=== PATIENT | female | born 1990 | race Caucasian/White ===

== ENCOUNTER 2023-11-26 09:43 | Outpatient (CLI) | payer BC ==
--- NOTE | 2023-11-27 13:08 | Ultrasound Report ---
PROCEDURE: OB 1st Trimester w/TV INDICATIONS: POSITIVE TEST OUTSIDE/PRIOR DATING DATA: Last menstrual period (LMP): 09/29/2023. LMP-based estimated date of delivery (KAYLEEN): 07/05/2024. First dating scan (date and location): 11/26/2023. Estimated date of delivery (KAYLEEN) from first dating scan: 07/07/2024. TECHNIQUE: Real-time scanning was performed of the fetus and maternal pelvic organs, with image documentation. Endovaginal scanning was also performed to better visualize the fetus and maternal ovaries. COMPARISON: None. FINDINGS: Intrauterine gestational sac present. Embryo: 1.56 cm, 8 weeks, 3 days Heart rate: 157 bpm. Other: No perigestational fluid collection. Measurement variability in dating: +/- 4 weeks by LMP, +/- 7 days by mean sac diameter (use before 6 weeks gestation if crown-rump length not able to be measured), +/- 5 days by crown-rump length (6-12 weeks gestation). Maternal organs: Ovaries appear within normal limits. IMPRESSION: Single live intrauterine gestation with a gestational age of 8 weeks, 3 days by crown-rump length. Reviewed by: Evangelina Israel MD on 11/27/2023 1:07 PM PST Approved by: Evangelina Israel MD on 11/27/2023 1:07 PM PST Station ID: [id number]
== END 2023-11-26 09:44 | disposition home or self-care (01) ==
LOC: DI 09:43
PROVIDERS: ATTEND Obstetrics & Gynecology
DX: Z34.91 Encounter for supervision of normal pregnancy, unspecified, first trimester (principal)

== ENCOUNTER 2023-12-05 08:00 | Outpatient (CLI) | payer BC ==
[2023-12-05 22:43] LABS: CHLAMYDIA TRACHOMATIS DNA NEGATIVE (NEGATIVE); NEISSERIA GONORRHOEAE DNA NEGATIVE (NEGATIVE); TRICHOMONAS VAGINALIS DNA NEGATIVE (NEGATIVE)
== END 2023-12-05 23:59 | disposition home or self-care (01) ==
LOC: LAB.WC 08:00
PROVIDERS: ATTEND Obstetrics & Gynecology
DX: Z11.3 Encounter for screening for infections with a predominantly sexual mode of transmission (principal)
CPT/HCPCS: 87491; 87591; 87661

== ENCOUNTER 2023-12-12 11:48 | Outpatient (CLI) | payer BC ==
[2023-12-12 12:14] LABS: BASOPHILS % (AUTO) 0.4 %; EOSINOPHILS % (AUTO) 0.5 %; HCT - HEMATOCRIT 32.6 % (37.0-47.0); HGB - HEMOGLOBIN 11.4 g/dL (12.0-16.0); LYMPHOCYTES # (AUTO) 1.4 10^3/uL (1.5-3.5); LYMPHOCYTES % (AUTO) 16.5 %; MEAN CORPUSCULAR HEMOGLOBIN 31.2 pg (27.0-31.0); MEAN CORPUSCULAR VOLUME 89.3 fL (81.0-99.0); MEAN PLATELET VOLUME 10.5 fL (7.9-10.8); MONOCYTES # (AUTO) 0.4 10^3/uL (0.0-1.0); MONOCYTES % (AUTO) 5.1 %; NEUTROPHILS # (AUTO) 6.3 10^3/uL (1.5-6.6); NEUTROPHILS % (AUTO) 77.3 %; PLT - PLATELET COUNT 211 10^3/uL (130-450); RED BLOOD COUNT 3.65 10^6/uL (4.20-5.40); RED CELL DISTRIBUTION WIDTH 12.2 % (12.0-15.0); WHITE BLOOD COUNT 8.2 x10^3/uL (4.8-10.8)
[2023-12-12 12:16] LABS: BILIRUBIN,URINE NEGATIVE (NEGATIVE); GLUCOSE, URINE (UA) NEGATIVE (NEGATIVE); KETONES,URINE (UA) NEGATIVE (NEGATIVE); LEUKOCYTE ESTERASE, URINE NEGATIVE (NEGATIVE); NITRITE,URINE NEGATIVE (NEGATIVE); OCCULT BLOOD,URINE NEGATIVE (NEGATIVE); PROTEIN,URINE NEGATIVE (NEGATIVE); UROBILINOGEN,URINE 0.2 (NORMAL) E.U./dL (NORMAL)
[2023-12-12 12:23] LABS: CLARITY,URINE CLEAR (CLEAR)
[2023-12-13 02:08] LABS: HIV SCREEN 4TH GENERATION Non Reactive (Non Reactive)
[2023-12-13 03:11] LABS: HCV AB Non Reactive (Non Reactive)
[2023-12-13 04:09] LABS: HBsAG SCREEN Negative (Negative)
[2023-12-13 06:10] LABS: RPR Non Reactive (Non Reactive)
[2023-12-13 09:10] LABS: VARICELLA-ZOSTER AB IGG 2259 index (Immune >165)
== END 2023-12-12 11:49 | disposition home or self-care (01) ==
LOC: LAB 11:48
PROVIDERS: ATTEND Obstetrics & Gynecology
DX: Z34.90 Encounter for supervision of normal pregnancy, unspecified, unspecified trimester (principal); Z36.89 Encounter for other specified antenatal screening
CPT/HCPCS: 36415; 81003; 85025; 86592; 86762; 86787; 86803; 86850; 86900; 86901; 87086; 87340; 87389

== ENCOUNTER 2024-02-23 08:08 | Outpatient (CLI) | payer BC ==
--- NOTE | 2024-02-23 11:47 | Ultrasound Report ---
PROCEDURE: OB Anatomy Scan INDICATIONS: SUPERVISION OF OUTSIDE/PRIOR DATING DATA: Last menstrual period (LMP): 09/29/2023. LMP-based estimated date of delivery (KAYLEEN): 07/05/2024. First dating scan (date and location): 11/26/2023. Estimated date of delivery (KAYLEEN) from first dating scan: 07/07/2022. The below data below was generated using the clinical KAYLEEN of 07/05/2024 TECHNIQUE: Real-time scanning was performed of the fetus, with image documentation and biometric measurements. Endovaginal scanning: Not performed. COMPARISON: 11/26/2023. FINDINGS: General: A single living intrauterine gestation is present. Presentation: Breech Placenta: Placental position is posterior. Inferior placenta measures 1.4 cm from the cervical os. Amniotic fluid index: 11.5 cm, within normal limits for gestational age. heart rate: 138 beats per minute. Maternal cervical canal: 4.1 cm long; normal length is 2.5 cm or more. biometrics: Biparietal diameter: 4.9 cm, 20 weeks 6 days, 40 percentile Head circumference: 17.7 cm, 20 weeks 1 day, 11 percentile Abdominal circumference: 15.7 cm, 20 weeks 6 days, 38 percentile Femur length: 3.4 cm, 20 weeks 6 days, 33 percentile Estimated gestational age from initial scan: 21 weeks 0 days Composite gestational age from present scan: 20 weeks 5 days Estimated weight and percentile: 376 g, 32nd percentile Measurement variability in biometric dating: +/- 10 days from 12-20 weeks gestation, +/- 2 weeks from 20-30 weeks gestation, +/- 3 weeks at 30 weeks gestation or later. Anatomic survey: Neuro: Ventricles are normal at less than 10 mm. Cisterna magna is normal at 3-11 mm. Cerebellum i s normal in size and morphology. Nuchal skin fold: Normal at less than 6 mm between 14 and 20 weeks gestational age. Face: Nose and lips, facial profile are normal. Spine: No evidence for spina bifida. Heart: 4-chambered heart is present, with normal ventricular outflow tracts. Diaphragm: Diaphragm is intact. Stomach: Left-sided stomach is present. Kidneys: No hydronephrosis. Normal is less than 5 mm in 2nd trimester, less than 7 mm in 3rd trimester. Cord: 3 vessel cord has orthotopic insertion. Bladder: Normal in size. Extremities: All 4 extremities are visualized. IMPRESSION: Single living intrauterine at 21 weeks 0 days, KAYLEEN of 07/05/2024. Low-lying placenta, 1.4 cm from the cervical os. Otherwise, normal anatomy survey. Estimated weight of 376 g, 32nd percentile. Reviewed by: Rusty Hbuer MD on 02/23/2024 11:46 AM PDT Approved by: Rusty Huber MD on 02/23/2024 11:46 AM PDT Station ID: [id number]
== END 2024-02-23 08:09 | disposition home or self-care (01) ==
LOC: DI 08:08
PROVIDERS: ATTEND Obstetrics & Gynecology
DX: O44.42 Low lying placenta NOS or without hemorrhage, second trimester (principal); Z3A.21 21 weeks gestation of pregnancy

== ENCOUNTER 2024-04-05 11:58 | Outpatient (CLI) | payer BC ==
[2024-04-05 13:13] LABS: HCT - HEMATOCRIT 34.4 % (37.0-47.0); HGB - HEMOGLOBIN 11.5 g/dL (12.0-16.0); MEAN CORPUSCULAR HEMOGLOBIN 30.8 pg (27.0-31.0); MEAN CORPUSCULAR HGB CONC 33.4 g/dL (32.0-36.0); MEAN CORPUSCULAR VOLUME 92.2 fL (81.0-99.0); MEAN PLATELET VOLUME 10.3 fL (7.9-10.8); RED BLOOD COUNT 3.73 10^6/uL (4.20-5.40); RED CELL DISTRIBUTION WIDTH 12.4 % (12.0-15.0); WHITE BLOOD COUNT 9.7 x10^3/uL (4.8-10.8)
== END 2024-04-05 11:59 | disposition home or self-care (01) ==
LOC: LAB 11:58
PROVIDERS: ATTEND Nurse Practitioner
DX: Z34.90 Encounter for supervision of normal pregnancy, unspecified, unspecified trimester (principal)
CPT/HCPCS: 36415; 82950; 85027

== ENCOUNTER 2024-05-12 13:49 | Outpatient (CLI) | payer BC ==
--- NOTE | 2024-05-13 07:03 | Ultrasound Report ---
PROCEDURE: OB Follow up INDICATIONS: LOW LYING PLACENTA OUTSIDE/PRIOR DATING DATA: Last menstrual period (LMP): 09/29/2023. The below data below was generated using the clinical KAYLEEN of 07/05/2024 TECHNIQUE: Real-time scanning was performed of the fetus, with image documentation and biometric measurements. Endovaginal scanning: Not performed. COMPARISON: 02/23/2024 FINDINGS: General: A single living intrauterine gestation is present. Presentation: Vertex Placenta: Placental position is posterior, low-lying placenta. Limited imaging of this region. Amniotic fluid index: 11.5 cm, within normal limits for gestational age. heart rate: 132 beats per minute. Maternal cervical canal: 3.9 cm long; normal length is 2.5 cm or more. biometrics: Biparietal diameter: 8.38 cm, 33 weeks 5 days, 82 percentile Head circumference: 28.4 cm, 31 weeks 2 days, 3.3 percentile Abdominal circumference: 26.41 cm, 30 weeks 4 days, 8 percentile Femur length: 5.97 cm, 31 weeks 1 day, 11.2 percentile Estimated gestational age from initial scan: 31 weeks 5 days Composite gestational age from present scan: 32 weeks 5 days Estimated weight and percentile: 1686 g, 10th percentile Measurement variability in biometric dating: +/- 10 days from 12-20 weeks gestation, +/- 2 weeks from 20-30 weeks gestation, +/- 3 weeks at 30 weeks gestation or more. Other: Not applicable. IMPRESSION: Single living intrauterine at 32 weeks 5 days, KAYLEEN of 07/05/2024. Suboptimal imaging due to positioning. Head circumference is at the 3rd percentile, but could b e artifactual for the stated reasons. Abdominal circumference also measures low, at 8th percentile. Low-lying placenta is persistent but suboptimally visualized due to positioning. Reviewed by: uRsty Huber MD on 05/13/2024 7:02 AM PDT Approved by: Rusty Huber MD on 05/13/2024 7:02 AM PDT Station ID: [id number]
== END 2024-05-12 13:50 | disposition home or self-care (01) ==
LOC: DI 13:49
PROVIDERS: ATTEND Obstetrics & Gynecology
DX: O44.43 Low lying placenta NOS or without hemorrhage, third trimester (principal); O26.843 Uterine size-date discrepancy, third trimester; Z3A.32 32 weeks gestation of pregnancy

== ENCOUNTER 2024-06-07 08:00 | Outpatient (CLI) | payer BC | END 2024-06-07 23:59 | disposition home or self-care (01) | LOC: LAB.WC 08:00 | PROVIDERS: ATTEND Obstetrics & Gynecology | DX: Z34.90 Encounter for supervision of normal pregnancy, unspecified, unspecified trimester (principal) | CPT/HCPCS: 87797 ==

== ENCOUNTER 2024-06-28 21:47 | Inpatient (IN) | payer BC ==
[2024-06-28] MEDS ORDERED: NIFEdipine 10 MG CAPSULE PO PRN (21:55)
[2024-06-28] MEDS ORDERED: ACETAMINOPHEN 500 MG TABLET PO PRN (21:55)
[2024-06-28] MEDS ORDERED: TERBUTALINE 1 MG/ML VIAL SUBQ PRN (21:55)
[2024-06-28] MEDS ORDERED: OXYTOCIN 10 UNIT/ML VIAL IM PRN (21:55)
[2024-06-28] MEDS ORDERED: ONDANSETRON ODT 4 MG TABLET TL PRN (21:55)
[2024-06-28] MEDS ORDERED: METHYLERGONOVINE 0.2 MG/ML VIAL IM PRN (21:55)
[2024-06-28] MEDS ORDERED: hydrALAZINE INJ 20 MG/ML VIAL IVP PRN ×2 (21:55)
[2024-06-28] MEDS ORDERED: OXYTOCIN/SODIUM CHLORIDE 500 ML IV PRN (21:55)
[2024-06-28] MEDS ORDERED: lidocaine 1% 20 ML MDV ID PRN (21:55)
[2024-06-28] MEDS ORDERED: fentaNYL 100 MCG/2 ML VIAL IVP PRN (21:55)
[2024-06-28] MEDS ORDERED: SODIUM CHLORIDE FLUSH 0.9% 10 ML SYRINGE IVP PRN (21:55)
[2024-06-28] MEDS ORDERED: miSOPROStoL 200 MCG TABLET BC PRN (21:55)
[2024-06-28] MEDS ORDERED: LABETALOL 20 MG/4 ML SYRINGE IVP PRN ×3 (21:55)
[2024-06-28] MEDS ORDERED: LACTATED RINGERS 1,000 ML IV PRN (21:55)
[2024-06-28] MEDS ORDERED: miSOPROStoL 200 MCG TABLET PR PRN (21:55)
[2024-06-28] MEDS ORDERED: CALCIUM CARBONATE CHEW 500 MG TABLET PO PRN (21:55)
[2024-06-28] MEDS ORDERED: TRANEXAMIC ACID IN NACL 1,000 MG/100 ML BAG IV PRN (21:55)
--- NOTE | 2024-06-28 21:55 | HISTORY & PHYSICAL EXAMINATION ---
Admit History - Visit Reason Visit Reason: Contractions - : 1 Smoking Status: Never smoker - Mother's Labs Mother's Blood Type: positive: B Mother's RH: positive: Positive GBS: positive: Group B Step Negative Rubella Status: positive: Immune - Other Maternal History Other Maternal History: HPI: Patient is a 33-year-old G1, P0 at 39 weeks 0 days gestation by LMP consistent with 8-week ultrasound who presented today for contractions. She has been etienne all day and they have picked up in intensity this evening. She has good movement. Denies loss of fluid. No HENRY/BV or RUQP. No vaginal bleeding. Denies nausea and vomiting. Denies urinary urgency or dysuria. All other symptoms reviewed and were negative except per HPI. Course LMP: 09/29/2023 KAYLEEN by LMP: 07/05/2024 Initial US Date 11/26/2023, US Age 8 weeks 3 days gestation, KAYLEEN by ultrasound: 07/07/2024 Final KAYLEEN: 07/05/2024 by LMP consistent with 8-week ultrasound Problems: HSV: Recurrent outbreaks, has found that valacyclovir works best. On prophylaxis since 36 weeks. No lesions. GERD: Frequent TUMS use. Tried famotidine. Changed to Omeprazole. Pre- Weight: 127 BMI: 19.67 Blood type: B+ Antibody Screen: negative CBC: PLT 211 HCT 32.6 HGB 11.4 RUB: immune VZV: immune HBsAg: negative HepC: N-R RPR/AB-EIA: N-R HIV: N-R Flu: rcvd Covid: rcvd PAP: 05/09/23 normal GC/CT: negative HSV: affirmative, current outbreak being treated Genetic testing: NIPT normal (considered Ashkenazi Sikh carrier screen, but she believes both her parents were screened negative) FAS: WNL but will repeat 3rd trimester for placental location Placenta: posterior; inferior measures 1.4 cm from cervical os Cord: 3VC GIBSON: 11.5 cm EFW: 376g; 32%ile 50gm OGCT: 96 TDAP: 04/26 Breast Pump: 04/26 RPR: declined today 3rd trimester CBC: PLT 217; HGB 11.5; HCT 34.4 GBS: Negative Delivery plan:, 39-week induction, or sooner if IUGR. Contraception: Mirena PMH HSV PSH None OB History SH Denies tobacco,, drugs. 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 . Family History Mother: Osteoporosis, hearing loss Allergies No known drug allergies Medications Valacyclovir 500 mg twice daily Omeprazole 20 mg daily vitamins Tums Physical exam: General: Alert, oriented, no acute distress Head: Normal cephalic atraumatic Eyes: PERRLA, extraocular motions intact. Respiratory: Normal rate of respiration. No accessory muscle use, normal respiratory effort. Cardiovascular: Regular rate and rhythm Abdomen: Gravid, nontender, nondistended Extremities: Normal range of motion Neuro: Oriented x3. Normal movements Psych: Appropriate mood and affect. Normal judgment and insight SVE: 4/90/-2 FHT: 135 bpm baseline, moderate variability, accelerations present, no decelerations. Category 1. Taylors: Difficult to trace, but approximately 6-8 minutes Plan 33-year-old at 39 weeks gestation presenting for term labor 1. Term labor -Admit to L&D, epidural at patient's request, labs, anticipate AROM, anticipate 2. 39 weeks gestation 3. vulvovaginal HSV -Continue valacyclovir -No lesions or prodromal symptoms. - HPI Current EDU 07/05/24 Gestation 39 Weeks and 0 Days 1 Vital Signs Temperature 99.3 F 06/28/24 22:05 Heart Rate 69 06/28/24 22:05 Respiratory Rate 16 06/28/24 22:05 Blood Pressure 140/88 H 06/28/24 22:05 Temperature 99.3 F 06/28/24 22:05 Heart Rate 69 06/28/24 22:05 Respiratory Rate 16 06/28/24 22:05 Blood Pressure 140/88 H 06/28/24 22:05 O2 Saturation If not protocol: Oxygen Flow, liters/minute Meds/Allgy - Home Medications Home Medications: Ambulatory Orders Medication Instructions Recorded Confirmed Omeprazole [PriLOSEC] 20 mg PO DAILY 06/28/24 06/28/24 valACYclovir [Valtrex] 1 tab PO BID 06/28/24 06/28/24 Physical - Abdominal Exam Vital Signs: Temp Pulse Resp BP Pulse Ox O2 Flow Rate 99.3 F 69 16 140/88 H 06/28/24 22:05 06/28/24 22:05 06/28/24 22:05 06/28/24 22:05 Plan for Labor - Plan For Labor I expect patient to be DC'd or transferred within 96 hours.: Yes
[2024-06-28] MEDS ORDERED: LACTATED RINGERS 1,000 ML IV SCH (22:00)
[2024-06-28] MEDS ORDERED: SODIUM CHLORIDE FLUSH 0.9% 10 ML SYRINGE IVP SCH (22:00)
[2024-06-28 22:47] LABS: BASOPHILS # (AUTO) 0.1 10^3/uL (0.0-0.1); BASOPHILS % (AUTO) 0.3 %; EOSINOPHILS # (AUTO) 0.1 10^3/uL (0.0-0.7); EOSINOPHILS % (AUTO) 0.3 %; HCT - HEMATOCRIT 34.2 % (37.0-47.0); HGB - HEMOGLOBIN 11.7 g/dL (12.0-16.0); LYMPHOCYTES # (AUTO) 1.6 10^3/uL (1.5-3.5); LYMPHOCYTES % (AUTO) 10.3 %; MEAN CORPUSCULAR HEMOGLOBIN 29.5 pg (27.0-31.0); MEAN CORPUSCULAR HGB CONC 34.2 g/dL (32.0-36.0); MEAN CORPUSCULAR VOLUME 86.4 fL (81.0-99.0); MEAN PLATELET VOLUME 11.5 fL (7.9-10.8); MONOCYTES # (AUTO) 0.7 10^3/uL (0.0-1.0); MONOCYTES % (AUTO) 4.8 %; NEUTROPHILS # (AUTO) 12.6 10^3/uL (1.5-6.6); NEUTROPHILS % (AUTO) 83.9 %; PLT - PLATELET COUNT 207 10^3/uL (130-450); RED BLOOD COUNT 3.96 10^6/uL (4.20-5.40); RED CELL DISTRIBUTION WIDTH 13.1 % (12.0-15.0)
[2024-06-28] MEDS ORDERED: ROPIVACAINE 0.2% 200 MG/100 ML BAG EP ONE (23:02)
[2024-06-28] MEDS ORDERED: LIDOCAINE 2%-EPI 1:100000 20 ML MDV ONE (23:03)
[2024-06-28] MEDS ORDERED: METOCLOPRAMIDE 10 MG/2 ML VIAL IVP PRN (23:42)
[2024-06-28] MEDS ORDERED: NALOXONE 0.4 MG/ML VIAL IVP PRN (23:42)
[2024-06-28] MEDS ORDERED: NALBUPHINE 10 MG/ML AMP IVP PRN (23:42)
[2024-06-28] MEDS ORDERED: diphenhydrAMINE INJ 50 MG/ML VIAL IVP PRN (23:42)
[2024-06-28] MEDS ORDERED: ePHEDrine 50 MG/ML VIAL IVP PRN (23:42)
[2024-06-28] MEDS ORDERED: ROPIVACAINE 0.2% 200 MG/100 ML BAG EP PRN (23:42)
[2024-06-28] MEDS ORDERED: ONDANSETRON 4 MG/2 ML VIAL IVP PRN (23:42)
--- NOTE | 2024-06-28 23:45 | ANESTHESIA ---
Pre-Anesthesia VS, & Labs - Diagnosis term labor, IUP - Procedure epidural for Vital Signs: Temp Pulse Resp BP Pulse Ox O2 Flow Rate 37.4 C 69 16 140/88 H 06/28/24 22:05 06/28/24 22:05 06/28/24 22:05 06/28/24 22:05 Height: 5 ft 7.5 in Weight (kg): 152 kg Body Mass Index: 51.7 BMI Classification: Morbidly Obese - NPO Last Fluid Intake: t/o day Last Food Intake: dinner - Is Patient ?: Yes - Lab Results Current Lab Results: Laboratory Tests 06/28/24 22:28: WBC 15.0 H, RBC 3.96 L, Hgb 11.7 L, Hct 34.2 L, MCV 86.4, MCH 29.5, MCHC 34.2, RDW 13.1, Plt Count 207, MPV 11.5 H, Neut # (Auto) 12.6 H, Lymph # (Auto) 1.6, Tensas # (Auto) 0.7, Eos # (Auto) 0.1, Baso # (Auto) 0.1, Absolute Nucleated RBC 0.00, Nucleated RBC % 0.0 Lab results reviewed: Yes Fish Bones: 06/28/24 22:28 Home Medications and Allergies Home Medications: Ambulatory Orders Omeprazole [PriLOSEC] 20 mg PO DAILY 06/28/24 valACYclovir [Valtrex] 1 tab PO BID 06/28/24 Active Medications Acetaminophen (Acetaminophen 500 Mg Tablet) 1,000 mg PO Q6HR PRN PRN Reason: Pain or Fever > 38C (100.4F) Calcium Carbonate/Glycine (Calcium Carbonate Chew 500 Mg Tablet) 500 mg PO TID PRN PRN Reason: Heartburn Famotidine (Famotidine 20 Mg Tablet) 20 mg PO BID KIRA Fentanyl (Fentanyl 100 Mcg/2 Ml Vial) 50 mcg IVP Q1H PRN PRN Reason: Severe Pain (score 7-10) Hydralazine HCl (Hydralazine Inj 20 Mg/Ml Vial) 10 mg IVP .ONCE PRN; Protocol PRN Reason: SBP> or= 160 OR DBP> or= 110 Hydralazine HCl (Hydralazine Inj 20 Mg/Ml Vial) 5 - 10 mg IVP Q20M PRN; Protocol PRN Reason: SBP> or= 160 OR DBP> or= 110 Oxytocin/Sodium Chloride (Pitocin/Sodium Chloride) 500 mls @ 999 mls/hr IV PRN PRN; Protocol PRN Reason: POST- HEMORR PREVENTION Tranexamic Acid (Tranexamic 1,000 Mg/100ml-Nacl) 1,000 mg in 100 mls @ 600 mls/hr IV Q30M PRN PRN Reason: EBL >1200mL and within 3hr Lactated Ringer's (Lr) 1,000 mls @ 125 mls/hr IV .Q8H KIRA Lactated Ringer's (Lr) 1,000 mls @ 999 mls/hr IV PRN PRN PRN Reason: PER PHYSICIAN ORDER Labetalol HCl (Labetalol 20 Mg/4 Ml Syringe) 20 mg IVP .ONCE PRN; Protocol PRN Reason: SBP> or= 160 OR DBP> or= 110 Labetalol HCl (Labetalol 20 Mg/4 Ml Syringe) 20 - 80 mg IVP Q10M PRN; Protocol PRN Reason: SBP> or= 160 OR DBP> or= 110 Labetalol HCl (Labetalol 20 Mg/4 Ml Syringe) 20 - 40 mg IVP Q10M PRN; Protocol PRN Reason: SBP> or= 160 OR DBP> or= 110 Lidocaine HCl (Lidocaine 1% 20 Ml Mdv) 20 ml ID .ONCE PRN PRN Reason: PERINEAL REPAIR Stop: 07/01/24 21:55 Methylergonovine Maleate (Methylergonovine 0.2 Mg/Ml Vial) 0.2 mg IM .ONCE PRN PRN Reason: Hemorrhage Misoprostol (Misoprostol 200 Mcg Tablet) 600 mcg BC .ONCE PRN PRN Reason: Hemorrhage Misoprostol (Misoprostol 200 Mcg Tablet) 800 mcg CA .ONCE PRN PRN Reason: Hemorrhage Nifedipine (Nifedipine 10 Mg Capsule) 10 - 20 mg PO Q20M PRN; Protocol PRN Reason: SBP> or= 160 OR DBP> or= 110 Ondansetron HCl (Ondansetron Odt 4 Mg Tablet) 4 mg TL Q6HR PRN PRN Reason: Nausea / Vomiting Oxytocin (Oxytocin 10 Unit/Ml Vial) 10 unit IM .ONCE PRN PRN Reason: Step One if no IV access. Sodium Chloride (Sodium Chloride Flush 0.9% 10 Ml Syringe) 10 ml IVP Q8H KIRA Sodium Chloride (Sodium Chloride Flush 0.9% 10 Ml Syringe) 10 ml IVP PRN PRN PRN Reason: NEEDED PER PROVIDER ORDERS Terbutaline Sulfate (Terbutaline 1 Mg/Ml Vial) 0.25 mg SUBQ .ONCE PRN PRN Reason: Tachystole Valacyclovir HCl (Valacyclovir 500 Mg Tablet) 500 mg PO BID KIRA Omeprazole [PriLOSEC] 20 mg PO DAILY 06/28/24 valACYclovir [Valtrex] 1 tab PO BID 06/28/24 Anes History & Medical History - Anesthetic History Anesthesia Complications: reports: No previous complications Family history of Anesthesia Complications: Denies - Medical History Cardiovascular: reports: None Pulmonary: reports: None Gastrointestinal: reports: None Urinary: reports: None Neuro: reports: None Musculoskeletal: reports: None Endocrine/Autoimmune: reports: None Blood Disorders: reports: None Skin: reports: None Smoking Status: Never smoker History of Cancer?: No - Surgical History Other Past Surgical History: wisdom teeth extraction - Obstetrical History : 1 Exam General: Alert, Oriented x3, Cooperative Dental: WNL Neck Mobility: Normal Respiratory: No respiratory distress Cardiovascular: Regular rate Neurological: Normal speech Cognitive Status: Within normal limits Plan Anesthesia Type: Epidural Consent for Procedure(s) Verified and Reviewed: Yes Code Status: Attempt Resuscitation ASA classification: 2-Mild systemic disease Is this case an emergency?: No
[2024-06-29] MEDS ORDERED: WITCH HAZEL/GLYCERIN 1 PAD TOP PRN (05:17)
[2024-06-29] MEDS ORDERED: SIMETHICONE CHEW 80 MG TABLET PO PRN (05:17)
[2024-06-29] MEDS ORDERED: ONDANSETRON 4 MG/2 ML VIAL IVP PRN (05:17)
[2024-06-29] MEDS ORDERED: CALCIUM CARBONATE CHEW 500 MG TABLET PO PRN (05:17)
--- NOTE | 2024-06-29 05:20 | DELIVERY NOTE ---
Delivery Note - Anesthetic Anesthetic Type: - Episiotomy Type Episiotomy Type: positive: None - Laceration Laceration: positive: 1st degree - Suture Suture Type: positive: Vicryl Suture Size: positive: 3-0 - Delivery Outcome Delivery Outcome: positive: Livebirth - Orick Orick: positive: Placed in direct skin contact with mother sex: positive: Female - Cord Cord: positive: 3 vessels - Placenta Placenta: positive: Intact - Estimated Blood Loss Estimated Blood Loss (in cc): 200 - Post Delivery Events Post Delivery Events: positive: No post delivery events - Delivery Comments (Free Text/Narrative) Delivery Comments (Free Text/Narrative): Preoperative Diagnoses 39 weeks gestation Term labor Postoperative Diagnoses Same Delivery of live mcdaniel Status post spontaneous vaginal delivery Summary Patient is a 33-year-old presented at 39 weeks gestation in active labor. She received an epidural for pain control. At 5 cm, amniotomy was performed with clear fluid. She progressed on her own until complete and ready to push. Delivery Summary: Patient was placed in the dorsal lithotomy position. Upon maternal pushing the head was delivered atraumatically followed by the anterior shoulder, posterior shoulder, then the remainder of the 's body. A female infant was delivered with APGARS of 8 at 1 minute and 9 at 5 minutes. The was placed on its mother's chest . After the cord finished pulsating, the umbilical cord was clamped times two and cut. Upon inspection the perineum, a small first-degree midline laceration was noted and repaired with a [id number] stitch of 3-0 Vicryl. The placenta delivered intact with three vessel cord. Placenta was not sent to pathology. Thirty units of Pitocin were added to the IV fluid and allowed to run freely. Uterine massage was performed until uterus was deemed firm. Upon reinspection, no additional lacerations were noted and patient was hemostatic. Uterus again massaged and found to be firm. Needle and sponge counts were correct. Patient was stable and allowed to recover in L&D room. was stable and remained in room with mother. weight is pending at this time.
[2024-06-29] MEDS ORDERED: LACTATED RINGERS 1,000 ML IV SCH (06:00)
[2024-06-29] MEDS: ACETAMINOPHEN 500 MG TABLET PO SCH (07:46)
[2024-06-29] MEDS: DOCUSATE SODIUM 100 MG CAPSULE PO PRN (07:46)
[2024-06-29] MEDS: IBUPROFEN 600 MG TABLET PO SCH (07:46)
[2024-06-29] MEDS ORDERED: FAMOTIDINE 20 MG TABLET PO SCH (09:00)
--- NOTE | 2024-06-29 13:43 | PHARMACY PROGRESS NOTE ---
- Best Possible Medication History Admit Date and Time: 06/28/24 1300 Processed by: Pharmacy Medication History completed: Yes Patient Interview: Completed Secondary Source(s): Insurance records (PT STATES ONLY [employer], BUT WILL NOW BE STOPPED ) As the person ultimately responsible for medication therapy, providers are able to order a medication from an existing home medication list in [facility] via the "Reconcile Routine" prior to Confirmation of that medication by learning support assistant. Such practice is discouraged except when the physician, in their clinical judgment, deems that a medical need exists for a medication without regard to previous use.
[2024-06-30] MEDS: valACYclovir 500 MG TABLET PO SCH (08:59)
[2024-06-30 09:05] VITALS: BP 123/69; O2SAT 98
--- NOTE | 2024-06-30 10:45 | Discharge Plan ---
Discharge Plan Problem Reviewed?: Yes Disposition: Home, Self Care Condition: Good Diet: Regular Activity Restrictions: Additional Comments Shower Restrictions: No Instruction Topics: Vaginal After, Depression No Smoking: If you smoke, Please STOP! Call for help. Follow-up with: Harlan Dugan MD [Provider Admit Priv/Credential] -
--- NOTE | 2024-06-30 10:50 | DISCHARGE SUMMARY ---
Discharge Summary Admit Date: 06/28/24 Discharge Date: 06/30/24 Discharging Provider: Harlan Dugan Code Status: Attempt Resuscitation Condition at Discharge: Good Discharge Disposition: 01 Home, Self Care - DIAGNOSES Admission Diagnoses: Term Labor HSV 39 weeks gestation Discharge Diagnoses with Status of Each Condition: Delivery of live mcdaniel Status post spontaneous vaginal delivery Small for gestational age - HPI History of Present Illness: Subjective Patient reports she is doing well. Lochia appropriate. Denies heavy bleeding. Ambulating without issue. Pelvic and abdominal pain well-controlled. Tolerating oral intake. Diet: Regular. Voiding without difficulty. Passing flatus. Denies BM. Patient is bonding with baby in room Breast feeding going well. Small amount of colostrum, supplementing with formula Denies feeling lightheaded, dizzy or excessively fatigued. Control: Mirena Objective General: Alert, oriented, no apparent distress. Cardiovascular: Regular rate. Regular rhythm. Lungs: No increased work of breathing. Abdomen: Uterus firm. Below umbilicus. No guarding or rebound. - HOSPITAL COURSE Hospital Course: Patient was a 33-year-old admitted at 39 weeks gestation with term labor. She was was etienne regularly and requested an epidural for pain control. Amniotomy was performed. She progressed without further augmentation until complete. She had an uncomplicated vaginal delivery with a small first degree tear. was SGA. She and were well and were discharged on day 1 with discharge counselling. - ALLERGIES Allergies/Adverse Reactions: Allergies Allergy/AdvReac Type Severity Reaction Status Date / Time No Known Drug Allergies Allergy Verified 06/29/24 05:24 - MEDICATIONS Home Medications: Ambulatory Orders Medication Instructions Recorded Confirmed Acetaminophen [Tylenol] 1,000 mg PO Q8H tab 06/30/24 Calcium Carbonate [Tums (Calcium 500 mg PO TID PRN tab 06/30/24 Carbonate 500mg)] Docusate Sodium 100Mg Capsule 100 mg PO BID PRN cap 06/30/24 [Colace 100Mg Capsule] Ibuprofen [Motrin] 600 mg PO Q6H tab 06/30/24 - LABS Result Diagrams: 06/28/24 22:28 - FOLLOW UP Follow Up: With Harlan Dugan MD in one week - TIME SPENT Time Spent in Discharge (Minutes): 20
--- NOTE | 2024-06-30 12:08 | Labor Flowsheet ---
Labor Flowsheet Datetime Report Generated by CPN: 06/30/2024 12:08 Datetime: 06/30/2024 09:01 VITAL SIGNS NBP Sys/Franchesca/Mean (mmHg): 123 : 69 : 81 Pulse: 61 Datetime: 06/29/2024 06:45 Stage of : Recovery Datetime: 06/29/2024 06:08 SpO2 (%): 97 Datetime: 06/29/2024 05:30 Temperature Route: Oral Datetime: 06/29/2024 05:29 LaborFlag: Labor Datetime: 06/29/2024 04:50 Communication Comments: Pt pushign with contractions. Education and encouragement provided. Datetime: 06/29/2024 04:45 COMMUNICATION Communication: RN at Bedside; RN Reviewed Strip; Provider at Bedside Datetime: 06/29/2024 04:40 Category: Category I Provider Reviewed Strip: Yes Patient Care Comments: lithotomy TEACHING Instructional Method: Verbal Notification Reason: Labor Status Datetime: 06/29/2024 04:15 Pattern: Normal: <= 5 Contractions in 10 Minutes Resting Tone (Palpate): Relaxed Datetime: 06/29/2024 04:06 VAGINAL EXAM Dilatation (cm): 10.0 Effacement (%): 100 Station: 0 Exam by: Diamond Ervin Datetime: 06/29/2024 04:00 UTERINE ACTIVITY Monitor Mode: External Monitor Interventions for UA: [place] Adjusted Frequency (min): 2-7 Quality: Strong Duration (sec): 50-90 ASSESSMENT A Monitor Mode: External US Monitor Interventions for FHR: Ultrasound Adjusted FHR Baseline Rate : 150 FHR Baseline Changes: Tachycardia Variability: Moderate 6-25 bpm Accelerations: None Decelerations: Variable Datetime: 06/29/2024 03:29 Respirations: 18 Temperature (C): 37.1 Datetime: 06/29/2024 02:48 Patient Position/Activity: Semi-Fowlers Datetime: 06/29/2024 01:57 PATIENT CARE IV/Blood Work: IV Bolus Started Datetime: 06/29/2024 01:27 Membranes Ruptured Date/Time: 06/29/2024 00:04 Membranes Rupture Method: Artificial Amniotic Fluid Color: Clear Amniotic Fluid Amount: Small Datetime: 06/29/2024 00:30 Comments: Lates during AROM Datetime: 06/29/2024 00:04 Vaginal Bleeding: Normal Show Cervix, Consistency: Soft Datetime: 06/28/2024 23:21 Epidural Procedure: Completed Datetime: 06/28/2024 23:19 Epidural Procedure Other: Pump Started Datetime: 06/28/2024 23:06 PROCEDURE TIME OUT Procedure Verify: Correct Patient Identity; Accurate Procedure Consent Form; Correct Patient Positi on ANESTHESIA Anesthesia Plans: Epidural Epidural Positioning: Sitting Datetime: 06/28/2024 23:05 Anesthesia Comments: Rojas at bedside
== END 2024-06-30 11:25 | disposition home or self-care (01) | DRG 806 ==
LOC: WFO 21:47 → FBP 21:49 → WFO 22:40
PROVIDERS: ADMIT Obstetrics & Gynecology; ATTEND Obstetrics & Gynecology
PROC: 10E0XZZ Delivery of Products of Conception, External Approach (ICD-10-PCS; principal; 2024-06-28)
PROC: 10907ZC Drainage of Amniotic Fluid, Therapeutic from Products of Conception, Via Natural or Artificial Opening (ICD-10-PCS; 2024-06-28)
PROC: 0HQ9XZZ Repair Perineum Skin, External Approach (ICD-10-PCS; 2024-06-28)
DX: O70.0 First degree perineal laceration during delivery (principal); O98.52 Other viral diseases complicating childbirth; Z37.0 Single live birth; Z3A.39 39 weeks gestation of pregnancy; A60.04 Herpesviral vulvovaginitis; O99.62 Diseases of the digestive system complicating childbirth; K21.9 Gastro-esophageal reflux disease without esophagitis; Z79.899 Other long term (current) drug therapy
CPT/HCPCS: 59409; 85025; 86850; 86900; 86901; A9270; J7120; Q0162